=== PATIENT | female | born 1945 | race Caucasian/White ===

== ENCOUNTER 2016-11-15 18:40 | Emergency (ER) | payer MEDICARE, MEDICAID ==
[2016-11-15 19:06] VITALS: BMI 25.2
--- NOTE | 2016-11-15 19:37 | C.PDOC ---
History Of Present Illness Patient presents to the ER with a complaint of SOB, left sided rib pain, cough, and sinus headache. Patient has a Hx of COPD; denies fever, chills, nausea, or vomiting. Time Seen by Provider: 11/15/16 19:36 Chief Complaint (Nursing): Shortness Of Breath History Per: Patient History/Exam Limitations: no limitations Onset/Duration Of Symptoms: Days Current Symptoms Are (Timing): Still Present Exacerbating Factor(s): Other (None) Severity: Moderate Pain Scale Rating Of: 4 Associated Symptoms: Other (Left sided rib pain, sinus headache). denies: Fever , Chills Recent travel outside of the [place]: No Past Medical History Reviewed: Historical Data, Nursing Documentation, Vital Signs Vital Signs: Last Vital Signs Temp 97.5 F L 11/15/16 19:13 Pulse 70 11/15/16 19:13 Resp 18 11/15/16 19:39 BP 148/72 11/15/16 19:13 Pulse Ox 99 11/15/16 21:38 - Medical History PMH: Asthma, COPD, HTN, Hypercholesterolemia - [facility] Procedures MEASURE CARDIAC SAMPL & PRESSURE, BILATERAL, PERC (05/23/16) PLAIN RADIOGRAPHY OF MULT COR ART USING OTH CONTRAST (05/23/16) PLAIN RADIOGRAPHY OF RIGHT AND LEFT HEART USING OTH CONTRAST (05/23/16) Family History: States: No Known Family Hx - Social History Hx Tobacco Use: No Hx Alcohol Use: No Hx Substance Use: No - Immunization History Hx Tetanus Toxoid Vaccination: No Hx Influenza Vaccination: No Hx Pneumococcal Vaccination: Yes Review Of Systems Constitutional: Negative for: Fever, Chills Respiratory: Positive for: Cough, Shortness of Breath Gastrointestinal: Negative for: Nausea, Vomiting Musculoskeletal: Positive for: Other (Left sided rib pain) Neurological: Positive for: Headache Physical Exam - Physical Exam Appears: Non-toxic Skin: Warm, Dry Head: Tenderness (Frontal sinus, Maxillary sinus ) Oral Mucosa: Moist Chest: Symmetrical, No Tenderness Cardiovascular: Rhythm Regular, No Murmur Respiratory: No Rales, Rhonchi (Rhonchi, left greater than right), No Wheezing Gastrointestinal/Abdominal: Soft, No Tenderness Neurological/Psych: Oriented x3 ED Course And Treatment - Laboratory Results Result Diagrams: 11/15/16 20:52 11/15/16 20:52 ECG: Interpreted By Me, Viewed By Me ECG Rhythm: Sinus Rhythm (83), Nonspecific Changes O2 Sat by Pulse Oximetry: 99 (Room air) Pulse Ox Interpretation: Normal - Radiology CXR: Interpreted by Me, Viewed By Me CXR Interpretation: No: Infiltrates, Fracture, Pnemothorax Progress Note: Blood work, EKG, CT orbits/facials, urinalysis, and CXR ordered. Duoneb administered. Reevaluation Time: 22:00 Reassessment Condition: Improved Disposition Counseled Patient/Family Regarding: Studies Performed, Diagnosis, Need For Followup, Rx Given - Disposition Referrals: Shaik Calderon MD [Staff Provider] - Disposition: HOME/ ROUTINE Disposition Time: 19:37 Condition: FAIR Prescriptions: Fluticasone Propionate [Flonase] 1 actuation NS DAILY #1 bottle Sulfamethoxazole/Trimethoprim [Bactrim DS 800 mg-160 mg] 1 tab PO BID #14 tab traMADol [Ultram] 50 mg PO TID PRN #15 tab PRN Reason: Pain, Moderate (4-7) Instructions: Sinusitis (ED) - Clinical Impression Clinical Impression: Sinusitis - Scribe Statement The provider has reviewed the documentation as recorded by the Scribe Alejandro Mitchell All medical record entries made by the Scribe were at my direction and personally dictated by me. I have reviewed the chart and agree that the record accurately reflects my personal performance of the history, physical exam, medical decision making, and the department course for this patient. I have also personally directed, reviewed, and agree with the discharge instructions and disposition.
[2016-11-15] MEDS: Albuterol-Ipratrop 3 mg / 0.5 (3 ml) UD IH SCH ×3 (20:15→20:45)
[2016-11-15] MEDS ORDERED: Albuterol-Ipratrop 3 mg / 0.5 (3 ml) UD ONE (20:36)
[2016-11-15 21:03] LABS: SQUAMOUS EPITHIAL < 1 /hpf (0-5); URINE BILIRUBIN NEGATIVE (NEGATIVE); URINE BLOOD 1+ (NEGATIVE); URINE CLARITY Clear (Clear); URINE COLOR Yellow (YELLOW); URINE GLUCOSE (UA) NORMAL (Normal); URINE LEUKOCYTE ESTERASE NEG Leu/uL (Negative); URINE NITRATE NEGATIVE (NEGATIVE); URINE PROTEIN NEGATIVE (NEGATIVE); URINE UROBILINOGEN NORMAL mg/dL (0.2-1.0)
[2016-11-15 21:05] LABS: BASO % 0.5 % (0.0-2.0); EOS # 0.3 K/uL (0.0-0.7); EOS % 3.6 % (0.0-4.0); LYMPH % 34.4 % (20.0-40.0); MEAN CELL VOLUME 91.7 fL (81.0-99.0); MEAN CORPUSCULAR HGB CONC 32.7 g/dL (33.0-37.0); MEAN PLATELET VOLUME 8.6 fL (7.2-11.7); MONO # 0.6 K/uL (0.0-0.8); MONO % 6.6 % (0.0-10.0); NEUT # 4.8 K/uL (1.8-7.0); NEUT % 54.9 % (50.0-75.0); RBC 4.19 Mil/uL (3.80-5.20); RED CELL DISTRIBUTION WIDTH 14.5 % (11.5-14.5); WHITE BLOOD COUNT 8.7 K/uL (4.8-10.8)
[2016-11-15 21:06] LABS: ALBUMIN 4.4 g/dL (3.5-5.0)
[2016-11-15 21:07] LABS: HEMOGLOBIN 12.6 g/dL (11.0-16.0)
[2016-11-15 21:08] LABS: GFR AFRICAN-AMERICAN > 60; GFR NON-AFRICAN AMERICAN > 60
[2016-11-15 21:09] LABS: ALB/GLOB RATIO 1.4 (1.0-2.1); ALT/SGPT 34 U/L (9-52); AST/SGOT 26 U/L (14-36); BLOOD UREA NITROGEN 8 mg/dL (7-17)
[2016-11-15 21:10] LABS: CALCIUM 9.5 mg/dl (8.6-10.4)
[2016-11-15 21:21] LABS: INR 0.9; PROTHROMBIN TIME 10.5 SECONDS (9.7-12.2)
[2016-11-15 21:23] LABS: B-TYPE NATRIURETIC PEPTIDE 183 pg/mL (0-900)
--- NOTE | 2016-11-15 21:27 | CT ---
EXAM: CT Maxillofacial Sinuses Without Intravenous Contrast CLINICAL HISTORY: 71 years old, female; Pain; Face pain and maxilla pain and other: Lt ear pain/face pain/h/o sinusitis; Additional info: Facial pain, HX of sinusitis TECHNIQUE: Computed tomography images of the maxillofacial sinuses without intravenous contrast. This CT exam was performed using one or more of the following dose reduction techniques: automated exposure control, adjustment of the mA and/or kV according to patient size, and/or use of iterative reconstruction technique. Coronal and sagittal reformatted images were created and reviewed. EXAM DATE/TIME: 11/15/2016 7:43 PM COMPARISON: CR - FACIAL BONES 08/12/2015 4:55:49 PM FINDINGS: Sinuses: Maxillary sinuses are well aerated with no air-fluid levels or mucoperiosteal thickening. Ostiomeatal complexes are patent bilaterally. Sphenoid sinus is unremarkable. There is mucoperiosteal thickening in ethmoid air cells. There is partial opacification of ethmoid air cells. There is mucoperiosteal thickening in the frontal sinuses left greater than right. There is a small air-fluid level in the left frontal sinus. Brain: No acute abnormalities are seen in visualized portion of the brain. Ears and mastoids Middle ears and mastoids are unremarkable Orbits: Orbital contents are unremarkable. Tonsils and adenoids: Tonsils and adenoids are unremarkable. Deep facial spaces: Parapharyngeal spaces are symmetric. There are no facial masses. Salivary glands: Parotid and submandibular glands are unremarkable. Airway: Airway is unremarkable Vascular: Vascular structures are unremarkable. Lack of contrast limits evaluation Nodes: There is no pathologic adenopathy. Dental: Patient is edentulous Bony structures: There are no acute osseous abnormalities. IMPRESSION: Frontal and ethmoid sinus disease; no left middle ear or mastoid disease identified
[2016-11-15] MEDS ORDERED: Tmp-Smz 800 mg-160 mg DS Tab PO STA (22:05)
[2016-11-15] MEDS ORDERED: Tmp-Smz 800 mg-160 mg DS Tab ONE (22:10)
[2016-11-15 22:27] VITALS: BP 148/76; PULSE 96; RESP 20; TEMP 97.6; O2SAT 95
--- NOTE | 2016-11-16 11:59 | RAD ---
PROCEDURE: CHEST RADIOGRAPH, 1 VIEW HISTORY: Shortness of breath COMPARISON: 05/22/2016 FINDINGS: LUNGS: No focal infiltrate or effusion. Biapical pleural thickening with upper lobe granulomatous changes. PLEURA: No pneumothorax or pleural fluid seen. CARDIOVASCULAR: Normal. OSSEOUS STRUCTURES: No significant abnormalities. VISUALIZED UPPER ABDOMEN: Normal. OTHER FINDINGS: Bibasilar breast and nipple shadows. IMPRESSION: No active disease.
--- NOTE | 2016-11-17 13:37 | CARD ---
APPROVED REPORT EKG Measurement Heart [id number] <Conclusion> Normal sinus rhythm Normal ECG
== END 2016-11-15 22:27 | disposition home or self-care (01) ==
LOC: C.ER 18:40
DX: J32.9 Chronic sinusitis, unspecified (principal)

== ENCOUNTER 2017-04-12 14:25 | Emergency (ER) | payer MEDICARE, MEDICAID ==
[2017-04-12 14:26] VITALS: BMI 25.2
[2017-04-12 15:11] VITALS: RESP 16; TEMP 97.6
--- NOTE | 2017-04-12 16:54 | C.PDOC ---
History Of Present Illness 71 year old female with Hx of chronic sinusitis is sent to the ED by her PMD, Dr. Blankenship. Patient reports her PMD advised her to come to the ED to get a CT of her sinuses. Patient reports she is currently taking levaquin, cefdinir, claritin, benadryl, and prednisone with no improvement to her symptoms. Time Seen by Provider: 04/12/17 16:33 Chief Complaint (Nursing): Headache History Per: Patient History/Exam Limitations: no limitations Onset/Duration Of Symptoms: Days Current Symptoms Are (Timing): Still Present Quality: "Pain" Preceeding Symptoms: denies: Visual Disturbances Recent travel outside of the [place]: No Additional History Per: Patient Past Medical History Reviewed: Historical Data, Nursing Documentation, Vital Signs Vital Signs: Last Vital Signs Temp 97.6 F 04/12/17 15:08 Pulse 71 04/12/17 18:44 Resp 16 04/12/17 18:44 BP 122/76 04/12/17 18:44 Pulse Ox 96 04/12/17 19:54 - Medical History PMH: Asthma, COPD, HTN, Hypercholesterolemia Surgical History: No Surg Hx - [facility] Procedures MEASURE CARDIAC SAMPL & PRESSURE, BILATERAL, PERC (05/23/16) PLAIN RADIOGRAPHY OF MULT COR ART USING OTH CONTRAST (05/23/16) PLAIN RADIOGRAPHY OF RIGHT AND LEFT HEART USING OTH CONTRAST (05/23/16) Family History: States: Unknown Family Hx - Social History Hx Tobacco Use: No Hx Alcohol Use: No Hx Substance Use: No - Immunization History Hx Tetanus Toxoid Vaccination: No Hx Influenza Vaccination: Yes Hx Pneumococcal Vaccination: Yes Review Of Systems Constitutional: Negative for: Fever, Chills Eyes: Negative for: Vision Change ENT: Positive for: Other (Facial pressure) Cardiovascular: Negative for: Chest Pain, Palpitations Respiratory: Negative for: Cough, Shortness of Breath Gastrointestinal: Negative for: Nausea, Vomiting, Abdominal Pain Skin: Negative for: Rash Neurological: Positive for: Headache. Negative for: Weakness, Numbness Physical Exam - Physical Exam Appears: Non-toxic, No Acute Distress Skin: Normal Color, Warm, Dry Head: Atraumatic, Normacephalic, Tenderness (Frontal, maxillary sinuses) Eye(s): bilateral: Normal Inspection Nose: No Discharge Oral Mucosa: Moist Neck: Normal ROM, Supple Chest: Symmetrical Cardiovascular: Rhythm Regular, No Murmur Respiratory: Normal Breath Sounds, No Rales, No Rhonchi, No Wheezing Gastrointestinal/Abdominal: Soft, No Tenderness Extremity: Normal ROM, No Pedal Edema, No Calf Tenderness, No Swelling Neurological/Psych: Oriented x3, Normal Speech, Normal Cognition ED Course And Treatment O2 Sat by Pulse Oximetry: 96 (On RA) Pulse Ox Interpretation: Normal - CT Scan/US Head CT Other Rad Studies (CT/US): Interpreted By Me, Read By Radiologist, Radiology Report Reviewed CT/US Interpretation: PROCEDURE: CT HEAD WITHOUT CONTRAST. HISTORY: dizziness. COMPARISON: Noncontrast head CT performed 05/22/16. TECHNIQUE: Axial computed tomography images were obtained through the head/brain without intravenous contrast. Radiation dose: Total exam DLP = 786.09 MGy-cm. This CT exam was performed using one or more of the following dose reduction techniques: Automated exposure control, adjustment of the mA and/or kV according to patient size, and/or use of iterative reconstruction technique. FINDINGS: HEMORRHAGE: No intracranial hemorrhage. BRAIN: Diffuse atrophy with prominence of the ventricles and sulci noted. No mass effect or edema. Intracranial atherosclerosis. Mild scattered white matter hypodensities, which are nonspecific, but often seen with chronic microvascular ischemic disease. Please note that MRI with diffusion imaging is more sensitive in the detection of acute ischemic event. VENTRICLES: No hydrocephalus. CALVARIUM: Unremarkable. PARANASAL SINUSES: Mucosal thickening of the right frontal sinus and ethmoid air cells. Small mucosal polyp/ retention cyst within the left sphenoid sinus. MASTOID AIR CELLS: Unremarkable as visualized. No inflammatory changes. OTHER FINDINGS: Opacification within the nasal fossa. IMPRESSION: No acute intracranial pathology identified. Generalized atrophy. Nonspecific white matter changes. Mucosal thickening of the right frontal sinus and ethmoid air cells. Small mucosal polyp/ retention cyst within the left sphenoid sinus. Opacification of the anterior nasal fossa. Medical Decision Making Medical Decision Making: Plan: * Head CT ordered * CT sinuses ordered * EKG ordered Assessment : Sinusitis Patient advised to continue antibiotics and medication as PMD prescribed Patient told to give for sinusitis Patient understand and copy of CT scan report given to pt and advised to return to ED if symptoms worsen Disposition Counseled Patient/Family Regarding: Studies Performed, Diagnosis, Need For Followup, Rx Given - Disposition Referrals: Jose David Marks MD [Staff Provider] - Disposition: HOME/ ROUTINE Disposition Time: 19:50 Condition: STABLE Additional Instructions: follow up with Dr. Hoff in 2 days call to make an appointment take medications as prescribed return to hospital if symptoms worsens or progress Prescriptions: Pseudoephedrine HCl [Sudafed] 30 mg PO QID PRN #20 tablet PRN Reason: Other Instructions: Sinusitis (ED) Forms: [facility] (Lao), General Discharge Instructions - Clinical Impression Clinical Impression: Sinusitis - Scribe Statement The provider has reviewed the documentation as recorded by the Scribe Manohar Ghotra All medical record entries made by the Scribe were at my direction and personally dictated by me. I have reviewed the chart and agree that the record accurately reflects my personal performance of the history, physical exam, medical decision making, and the department course for this patient. I have also personally directed, reviewed, and agree with the discharge instructions and disposition.
--- NOTE | 2017-04-12 17:48 | CT ---
PROCEDURE: CT HEAD WITHOUT CONTRAST. HISTORY: dizziness COMPARISON: Noncontrast head CT performed 05/22/16 TECHNIQUE: Axial computed tomography images were obtained through the head/brain without intravenous contrast. Radiation dose: Total exam DLP = 786.09 MGy-cm. This CT exam was performed using one or more of the following dose reduction techniques: Automated exposure control, adjustment of the mA and/or kV according to patient size, and/or use of iterative reconstruction technique. FINDINGS: HEMORRHAGE: No intracranial hemorrhage. BRAIN: Diffuse atrophy with prominence of the ventricles and sulci noted. No mass effect or edema. Intracranial atherosclerosis. Mild scattered white matter hypodensities, which are nonspecific, but often seen with chronic microvascular ischemic disease. Please note that MRI with diffusion imaging is more sensitive in the detection of acute ischemic event. VENTRICLES: No hydrocephalus. CALVARIUM: Unremarkable. PARANASAL SINUSES: Mucosal thickening of the right frontal sinus and ethmoid air cells. Small mucosal polyp/ retention cyst within the left sphenoid sinus. MASTOID AIR CELLS: Unremarkable as visualized. No inflammatory changes. OTHER FINDINGS: Opacification within the nasal fossa. IMPRESSION: No acute intracranial pathology identified. Generalized atrophy. Nonspecific white matter changes. Mucosal thickening of the right frontal sinus and ethmoid air cells. Small mucosal polyp/ retention cyst within the left sphenoid sinus. Opacification of the anterior nasal fossa.
[2017-04-12 18:45] VITALS: BP 122/76; PULSE 71
[2017-04-12 19:52] VITALS: O2SAT 96
--- NOTE | 2017-04-13 09:41 | CT ---
PROCEDURE: CT SINUSES WITHOUT CONTRAST HISTORY: sinusitis COMPARISON: Orbit CT without contrast 11/15/2016. TECHNIQUE: Contiguous axial CT images of the paranasal sinuses were obtained. Coronal and sagittal reformats were generated. Radiation dose: Total exam DLP = 600.99 mGy-cm. This CT exam was performed using one or more of the following dose reduction techniques: Automated exposure control, adjustment of the mA and/or kV according to patient size, and/or use of iterative reconstruction technique. FINDINGS: FRONTAL SINUSES: There is hyper aeration at the left frontal sinus with normal development at the right. Limited sinus fluid is seen at the dependent portion of the right frontal sinus with mucosal inflammation or fluid obstructing the left frontal sinus base. ETHMOID SINUSES: Partial opacification of multiple middle and posterior ethmoid air cells appreciated with normal development seen throughout. SPHENOID SINUSES: Minimal mucoid material is seen at the dependent portion left sphenoid sinus and at the lateral margins of the right sphenoid sinus. Both appear normally developed. MAXILLARY SINUSES: Bilaterally unremarkable. SINUS DRAINAGE: The bilateral ostiomeatal complexes are widely patent without opacification or other obstruction evident. Fluid or mucoid material obstructs the left frontal recess with the right frontal recess minimally obstruction by this same. Sphenoid ethmoidal recesses appear narrowed at the right on a developmental basis with the left widely patent. NASAL SEPTUM: Rightward bony nasal septal deviation is identified. MASS: None. SKULL BASE: Unremarkable. TEMPORAL BONES: Middle ears and mastoid grossly unremarkable. OTHER FINDINGS: None. IMPRESSION: Limited sinus disease is seen at the bilateral ethmoid and sphenoid sinuses and minimally at the right frontal sinus as discussed above. Trace fluid or mucoid material is seen at the bilateral sphenoid sinuses. Likely developmental narrowing of the proximal right sphenoid ethmoidal recess with left recess widely patent. No suspicious lytic or blastic changes.
== END 2017-04-12 20:04 | disposition home or self-care (01) ==
LOC: C.ER 14:25
DX: J32.9 Chronic sinusitis, unspecified (principal)

== ENCOUNTER 2018-04-20 14:05 | Emergency (ER) | payer MEDICAID, MEDICARE ==
[2018-04-20 14:06] VITALS: BMI 25.2
[2018-04-20] MEDS ORDERED: Sodium Chloride 0.9% 1,000 ML IV ONE (15:11)
[2018-04-20 15:13] LABS: BASO # 0.1 K/uL (0.0-0.2); EOS # 0.2 K/uL (0.0-0.7); EOS % 2.5 % (0.0-4.0); HEMOGLOBIN 12.3 g/dL (11.0-16.0); LYMPH # 2.2 K/uL (1.0-4.3); LYMPH % 27.9 % (20.0-40.0); MEAN CELL VOLUME 95.2 fL (81.0-99.0); MEAN CORPUSCULAR HEMOGLOBIN 31.3 pg (27.0-31.0); MEAN CORPUSCULAR HGB CONC 32.9 g/dL (33.0-37.0); MONO # 0.7 K/uL (0.0-0.8); MONO % 8.8 % (0.0-10.0); NEUT # 4.8 K/uL (1.8-7.0); NEUT % 59.8 % (50.0-75.0); NRBC % 0.1 % (0.0-2.0); RBC 3.93 Mil/uL (3.80-5.20); WHITE BLOOD COUNT 8.1 K/uL (4.8-10.8)
[2018-04-20 15:22] LABS: INR 0.9; PROTHROMBIN TIME 10.2 SECONDS (9.7-12.2)
[2018-04-20 15:26] LABS: ALB/GLOB RATIO 1.6 (1.0-2.1); ALBUMIN 4.3 g/dL (3.5-5.0); ALT/SGPT 33 U/L (9-52); AST/SGOT 31 U/L (14-36); BLOOD UREA NITROGEN 6 mg/dL (7-17); GFR NON-AFRICAN AMERICAN > 60
--- NOTE | 2018-04-20 16:03 | RAD ---
Date of service: 04/20/2018 HISTORY: dizziness COMPARISON: 11/15/2006 TECHNIQUE: Chest PA and lateral FINDINGS: LUNGS: No consolidation. Lung volumes appear normal overall interstitial lung markings appear diffusely borderline prominent. Possible suprahilar bilateral bullous emphysematous changes. PLEURA: No significant pleural effusion identified. No pneumothorax apparent. CARDIOVASCULAR: There is presence of aortic atherosclerotic calcification on x-ray. Normal cardiac size. No pulmonary vascular congestion. OSSEOUS STRUCTURES: Acromioclavicular joint arthrosis. VISUALIZED UPPER ABDOMEN: Normal. OTHER FINDINGS: None. IMPRESSION: No acute cardiopulmonary pathology. Other findings as above.
--- NOTE | 2018-04-20 16:33 | C.PDOC ---
History Of Present Illness 72 y/o female presents to the ED complaining of a constant headache since the beginning of March. Patient went to see her PMD on 04/10 and was given Levaquin for a sinus infection. She finished the course, however still has persistent headache. States on 04/16 at 3:00am she felt as if her head exploded, which woke her up from sleeping. Since then patient has also had constant dizziness. The pain radiates down the left neck into her left shoulder. Otherwise patient denies any fever, chest pain, SOB, decreased hearing, visual changes, or focal weakness in extremities. Time Seen by Provider: 04/20/18 14:38 Chief Complaint (Nursing): Headache History Per: Patient History/Exam Limitations: no limitations Onset/Duration Of Symptoms: Days (> 30), Persistent Current Symptoms Are (Timing): Still Present Past Medical History Reviewed: Historical Data, Nursing Documentation, Vital Signs Vital Signs: Last Vital Signs Temp 97.8 F 04/20/18 14:26 Pulse 92 H 04/20/18 14:26 Resp 20 04/20/18 14:26 BP 157/81 H 04/20/18 14:26 Pulse Ox 97 04/20/18 14:26 - Medical History PMH: Asthma, COPD, HTN, Hypercholesterolemia - [facility] Procedures MEASURE CARDIAC SAMPL & PRESSURE, BILATERAL, PERC (05/23/16) PLAIN RADIOGRAPHY OF MULT COR ART USING OTH CONTRAST (05/23/16) PLAIN RADIOGRAPHY OF RIGHT AND LEFT HEART USING OTH CONTRAST (05/23/16) Family History: States: Unknown Family Hx - Social History Hx Tobacco Use: No Hx Alcohol Use: No Hx Substance Use: No - Immunization History Hx Tetanus Toxoid Vaccination: No Hx Influenza Vaccination: Yes Hx Pneumococcal Vaccination: Yes Review Of Systems Constitutional: Negative for: Fever Eyes: Negative for: Vision Change, Other (photophobia) ENT: Negative for: Other (decreased hearing) Cardiovascular: Negative for: Chest Pain Respiratory: Negative for: Cough, Shortness of Breath Gastrointestinal: Negative for: Nausea, Vomiting Musculoskeletal: Positive for: Neck Pain Neurological: Positive for: Headache, Dizziness. Negative for: Weakness, Numbness Physical Exam - Physical Exam Appears: Non-toxic, No Acute Distress Skin: Normal Color, Warm, Dry Head: Atraumatic, Normacephalic, Other (no temporal artery tenderness bilaterally) Eye(s): bilateral: Normal Inspection (no nystagmus), PERRL, EOMI Oral Mucosa: Moist Neck: Trachea Midline, Supple, Other (left lateral neck and left trapezius tenderness) Chest: Symmetrical Cardiovascular: Rhythm Regular, No Murmur Respiratory: Normal Breath Sounds, No Rales, No Rhonchi, No Wheezing Gastrointestinal/Abdominal: Soft, No Tenderness, No Distention Extremity: Bilateral: Atraumatic, Normal Color And Temperature Pulses: Left Radial: Normal, Right Radial: Normal Neurological/Psych: Oriented x3, Normal Speech, Normal Cranial Nerves (2-12 grossly intact), Other (Normal [id number]) Gait: Steady ED Course And Treatment - Laboratory Results Result Diagrams: 04/20/18 15:06 04/20/18 15:06 O2 Sat by Pulse Oximetry: 97 (RA) Pulse Ox Interpretation: Normal - Other Rad CXR X-Ray: Read By Radiologist Interpretation: Accession No. : [id number]. Patient Name / ID : MADHU JONES / [id number]. Exam Date : 04/20/2018 15:45:20 ( Approved ). Study Comment : Sex / Age : F / 72Y. Creator : Gail Hastings V. Dictator : Gail Hastings V. Account Manager Employee Benefits : Vice President Diversity : Gail Gaspar V. Approver2 : Report Date : 04/20/2018 15:59:58. My Comment : . Date of service: 04/20/2018. HISTORY: dizziness. COMPARISON: 11/15/2006. TECHNIQUE: Chest PA and lateral. FINDINGS: LUNGS: No consolidation. Lung volumes appear normal overall interstitial lung markings appear diffusely borderline prominent. Possible suprahilar bilateral bullous emphysematous changes. PLEURA: No significant pleural effusion identified. No pneumothorax apparent. CARDIOVASCULAR: There is presence of aortic atherosclerotic calcification on x-ray. Normal cardiac size. No pulmonary vascular congestion. OSSEOUS STRUCTURES: Acromioclavicular joint arthrosis. VISUALIZED UPPER ABDOMEN: Normal. OTHER FINDINGS: None. IMPRESSION: No acute cardiopulmonary pathology. Other findings as above. - CT Scan/US CT Head Other Rad Studies (CT/US): Read By Radiologist CT/US Interpretation: Accession No. : [id number]. Patient Name / ID : MADHU JONES / [id number]. Exam Date : 04/20/2018 17:07:28 ( Approved ). Study Comment : Sex / Age : F / 72Y. Creator : Esther Trejo MD. Dictator : Esther Trejo MD. Account Manager Employee Benefits : Vice President Diversity : Esther Trejo MD. Approver2 : Report Date : 04/20/2018 17:45:26. My Comment : . Date of service: 04/20/2018. PROCEDURE: CT HEAD WITHOUT CONTRAST. HISTORY: headache and dizziness. COMPARISON: Noncontrast head CT performed 04/12/17. TECHNIQUE: Axial computed tomography images were obtained through the head/brain without intravenous contrast. Radiation dose: Total exam DLP = 913.41 mGy-cm. This CT exam was performed using one or more of the following dose reduction techniques: Automated exposure control, adjustment of the mA and/or kV according to patient size, and/or use of iterative reconstruction technique. FINDINGS: HEMORRHAGE: No intracranial hemorrhage. BRAIN: Diffuse atrophy with prominence of the ventricles and sulci noted. No mass effect or edema. Scattered periventricular and subcortical white matter hypodensities, which are nonspecific, but often seen with chronic microvascular ischemic disease. Please note that MRI with diffusion imaging is more sensitive in the detection of acute ischemic event. VENTRICLES: No hydrocephalus. CALVARIUM: Unremarkable. PARANASAL SINUSES: Small mucosal polyp/cysts within the left sphenoid sinus. Mild mucosal thickening of the ethmoid air cells. Partial opacification of the right frontal sinus. MASTOID AIR CELLS: Unremarkable as visualized. No inflammatory changes. OTHER FINDINGS: None. IMPRESSION: Nonspecific white matter changes. Generalized atrophy. Small mucosal polyp/cysts within the left sphenoid sinus. Mild mucosal thickening of the ethmoid air cells. Partial opacification of the right frontal sinus. CTA Head Neck Other Rad Studies (CT/US): Read By Radiologist CT/US Interpretation: Name:KAREN LEUNG Exam Date:Apr 20, 2018 5:10:18 PM EST. Modality Type:CT. Description:CTA NECK, CTA BRAIN AND [place]. Gender:F Laterality:Not applicable. :45 Referring Physician:GISELL MARINELLI MD CTA BRAIN: CLINICAL HISTORY: Headach es. TECHNIQUE: Multiple axial CT images were obtained through brain with IV contrast material. Coronal and sagittal reconstructions are available. COMMENTS: The study shows normal configuration of sella turcica. There are no intra or extra-axial collections. There is no mass effect or midline shift. There is no evidence of hematoma formation. No hydrocephalus is present. The ventricles are symmetrical. There is no parenchymal atrophy. No abnormal calcifications are present. No significant abnormalities are seen either in the posterior fossa or supratentorial compartment. There opacified anterior ethmoid sinuss suggestive of chronic sinusitis. Post contrast images demonstrate no evidence for abnormal enhancement. The left vertebral artery is dominant. The atheromatous calcifications of the intracranial segments of the internal carotid arteries. No significant stenosis. IMPRESSION: No significant stenosis. Atheromatous plaques of the internal carotid arteries. CTA NECK: Findings: There is atheromatous plaque at the origin of the left vertebral artery with severe kinking and probably mild to moderate stenosis 30-50%. The remainder of the left vertebral artery is well opacified and is of normal caliber. There is slight narrowing at the origin of the right vertebral artery as well. There is calcified atheromatous plaque at the origin of the left common carotid with mild to moderate 30-50% luminal narrowing. There are calcified plaques at the carotid bulb without a luminal narrowing. There are degenerative changes at C5/C6 with posterior disc osteophyte complex producing spinal canal narrowing. Impression: Atheromatous plaques at the origin of the left vertebral artery with 30-50% stenosis. Similar findings at the origin of the right vertebral artery with mild narrowing. Atheromatous plaque with mild to moderate 30-50% stenosis of the origin of the left common carotid artery. Atheromatous plaques in the carotid bulbs without stenosis. Severe degenerative osteophytic spurring at C5/C6 as described. Medical Decision Making Medical Decision Making: Impression: Persistent headache, dizziness Initial Plan: --EKG --Blood work with coags --Chest x-ray --IV fluids x 1 bolus --Toradol 30 mg IVP --Reglan 10 mg IVP --CT Head without contrast --CTA Head/Neck bundle Patient reports allergy to motrin and toradol, toradol not given. Administered Tylenol PO for pain control. CT findings reviewed with patient. Discussed case with Dr. Quinn Hilario, who accepts patient for admission and requests Dr. Robles for neurology consult. 19:15 Patient is choosing to leave AMA. AMA (admission): The patient declines admission, and wishes to leave the Emergency Department. This action is against my medical advice to the patient and the decision was made with informed refusal. The patient was told that admission is necessary and a full explanation of the rationale was given. The risks of leaving were explained to the patient and include, but are not limited to, worsening of known or currently unknown conditions, permanent disability and from undiagnosed or untreated conditions The patient has the capacity to make this informed decision and understands the clinical situation and my explanation of the risks of leaving. The patient voluntarily accepts these risks, and a signed AMA form documenting our conversation was obtained. The patient was given the opportunity to ask questions and reconsider. The patient was encouraged to return to the Emergency Department at any time for further care. Disposition Counseled Patient/Family Regarding: Studies Performed, Diagnosis, Need For Followup - Disposition Disposition: AGAINST MEDICAL ADVICE Disposition Time: 19:15 Condition: STABLE Additional Instructions: KAREN LEUNG, thank you for letting us take care of you today. Your provider was Gisell Marinelli MD and you were treated for HEADACHE. The emergency medical care you received today was directed at your acute symptoms. If you were prescribed any medication, please fill it and take as directed. It may take several days for your symptoms to resolve. Return to the Emergency Department if your symptoms worsen, do not improve, or if you have any other problems. Please contact your doctor or call one of the physicians/clinics you have been referred to that are listed on the Patient Visit Information form that is i ncluded in your discharge packet. Bring any paperwork you were given at discharge with you along with any medications you are taking to your follow up visit. Our treatment cannot replace ongoing medical care by a primary care provider outside of the emergency department. Thank you for allowing the [facility] team to be part of your care today. If you had an X-Ray or CT scan: A Radiologist will review the ED reading if any change in treatment is needed we will contact you. If you had a blood, urine, or wound culture: It will take several days for the results, if any change in treatment is needed we will contact you. If you had an STI test: It will take 48 hours for the results. Please call after 1 week if you have not heard back. Instructions: Carotid Artery Stenosis (DC) Forms: Doodle (Maori) - Clinical Impression Clinical Impression: Headache - Scribe Statement The provider has reviewed the documentation as recorded by the Morgan Millan Provider Attestation: All medical record entries made by the Morgan were at my direction and personally dictated by me. I have reviewed the chart and agree that the record accurately reflects my personal performance of the history, physical exam, medical decision making, and the department course for this patient. I have also personally directed, reviewed, and agree with the discharge instructions and disposition.
--- NOTE | 2018-04-20 17:48 | CT ---
Date of service: 04/20/2018 PROCEDURE: CT HEAD WITHOUT CONTRAST. HISTORY: headache and dizziness COMPARISON: Noncontrast head CT performed 04/12/17 TECHNIQUE: Axial computed tomography images were obtained through the head/brain without intravenous contrast. Radiation dose: Total exam DLP = 913.41 mGy-cm. This CT exam was performed using one or more of the following dose reduction techniques: Automated exposure control, adjustment of the mA and/or kV according to patient size, and/or use of iterative reconstruction technique. FINDINGS: HEMORRHAGE: No intracranial hemorrhage. BRAIN: Diffuse atrophy with prominence of the ventricles and sulci noted. No mass effect or edema. Scattered periventricular and subcortical white matter hypodensities, which are nonspecific, but often seen with chronic microvascular ischemic disease. Please note that MRI with diffusion imaging is more sensitive in the detection of acute ischemic event. VENTRICLES: No hydrocephalus. CALVARIUM: Unremarkable. PARANASAL SINUSES: Small mucosal polyp/cysts within the left sphenoid sinus. Mild mucosal thickening of the ethmoid air cells. Partial opacification of the right frontal sinus. MASTOID AIR CELLS: Unremarkable as visualized. No inflammatory changes. OTHER FINDINGS: None. IMPRESSION: Nonspecific white matter changes. Generalized atrophy. Small mucosal polyp/cysts within the left sphenoid sinus. Mild mucosal thickening of the ethmoid air cells. Partial opacification of the right frontal sinus.
[2018-04-20 19:17] VITALS: BP 116/78; PULSE 82; RESP 16; TEMP 98.4
[2018-04-20 19:29] VITALS: O2SAT 97
--- NOTE | 2018-04-21 07:08 | CARD ---
APPROVED REPORT Date of service: 04/20/2018 EKG Measurement Heart [id number] <Conclusion> Normal sinus rhythm Normal ECG
--- NOTE | 2018-04-21 08:46 | CT ---
Date of service: 04/20/2018 PROCEDURE: CT Angiography of the Brain. HISTORY: headache and dizziness COMPARISON: None available. TECHNIQUE: CT angiography of the intracranial arteries was performed. Coronal and sagittal maximum intensity projection reformated images were generated. Radiation dose: Total exam DLP = 442.59 mGy-cm. This CT exam was performed using one or more of the following dose reduction techniques: Automated exposure control, adjustment of the mA and/or kV according to patient size, and/or use of iterative reconstruction technique. FINDINGS: INTERNAL CEREBRAL ARTERIES: Unremarkable. The skull base, petrous, cavernous and supraclinoid segments are bilaterally widely patent. ANTERIOR CEREBRAL ARTERIES: Unremarkable. A1 and A2 segments are widely patent. Smaller distal branches unremarkable, as visualized. MIDDLE CEREBRAL ARTERIES: Unremarkable. M1 and M2 segments are widely patent. Perisylvian branches grossly symmetric. POSTERIOR CIRCULATION: Basilar Artery: Unremarkable. Distal Vertebral Arteries: Unremarkable. Posterior Cerebral Arteries: Unremarkable. Posterior Inferior Cerebellar Arteries: Unremarkable. ANEURYSM/ VASCULAR MALFORMATIONS: None. OTHER FINDINGS: None. IMPRESSION: Unremarkable CT Angiography of the Brain. Date of service: 04/20/2018 PROCEDURE: CT Angiography of the neck with contrast HISTORY: headache and dizziness COMPARISON: None. TECHNIQUE: Contiguous axial images of the neck were obtained from the level of the skull-base to the superior mediastinum in the arteriographic phase of enhancement. Coronal and sagittal reformats or also generated. IV contrast dose: Radiation dose: Total exam DLP = 442.59 mGy-cm. This CT exam was performed using one or more of the following dose reduction techniques: Automated exposure control, adjustment of the mA and/or kV according to patient size, and/or use of iterative reconstruction technique. FINDINGS: RIGHT CAROTID ARTERIES: Common Carotid Artery: Normal. Carotid Bifurcation: Normal. Internal Carotid Artery:Normal. External Carotid Artery (proximal branches): Normal. LEFT CAROTID ARTERIES: Common Carotid Artery: Atherosclerotic plaque with 30-50 percent luminal narrowing. Carotid Bifurcation: Normal. Internal Carotid Artery:Normal. External Carotid Artery (proximal branches): Normal. VERTEBRAL ARTERIES: Right Vertebral Artery: Normal. Left Vertebral Artery: Evidence of kinking of the vessel with probable mild to moderate stenosis of 30-50 percent. OTHER FINDINGS: no aortic atherosclerotic calcification or mural plaque present. IMPRESSION: [id number] stenoses in the left common carotid artery and left vertebral artery.
== END 2018-04-20 19:29 | disposition left against medical advice (07) ==
LOC: C.ER 14:05
DX: R51 Headache (principal)
CPT/HCPCS: 70450; 70496; 70498; 71046; 80053; 85025; 85610; 85730; 93005; 96361; 96374; 99285; J2765; J7030